=== PATIENT | female | born 1990 | race Caucasian/White ===

== ENCOUNTER → 2018-09-25 | Outpatient (CLI) | payer MEDICAID ==
[2018-09-25 16:06] LABS: BASO % 0.2 % (0.0-1.0); EOS # 0.1 10^3/uL (0.0-0.50); EOS % 0.7 % (0.0-3.0); HEMATOCRIT 34.9 % (36.0-47.0); HEMOGLOBIN 11.6 g/dl (12.0-15.5); LYMPH # 2.5 10^3/uL (1.5-6.5); LYMPH % 12.8 % (24.0-44.0); MEAN CORPUSCULAR HEMOGLOBIN 30.4 pg (27.0-33.0); MEAN CORPUSCULAR HGB CONC 33.2 g/dl (32.0-36.5); MEAN CORPUSCULAR VOLUME 91.4 fl (80.0-96.0); MONO # 0.7 10^3/uL (0.0-0.8); MONO % 3.6 % (0.0-5.0); NEUTROPHILS # 15.8 10^3/uL (1.8-7.7); PLATELET COUNT, AUTOMATED 315 10^3/uL (150-450); RED BLOOD COUNT 3.82 10^6/uL (4.00-5.40); WHITE BLOOD COUNT 19.2 10^3/uL (4.0-10.0)
[2018-09-25 17:19] LABS: HIV 1&2 SCREEN CENTAUR NEGATIVE (NEGATIVE); RUBELLA IgG QUALITATIVE IMMUNE (IMMUNE)
[2018-09-25 17:34] LABS: CHLAMYDIA DNA AMPLIFICATION NEGATIVE (NEGATIVE); GC DNA AMPLIFICATION NEGATIVE (NEGATIVE)
== END ==
LOC: M LAB 15:22
PROVIDERS: ATTEND Advanced Practice Midwife
DX: Z34.81 Encounter for supervision of other normal pregnancy, first trimester (principal); Z3A.08 8 weeks gestation of pregnancy

== ENCOUNTER 2018-10-11 20:57 | Inpatient (IN) | payer MEDICAID, OTHER ==
[~2018-10-11] VITALS: Ht 165.1 cm; Wt 60.5 kg
[2018-10-11] MEDS ORDERED: ZOFR4TAB16 PO (21:07)
[2018-10-11] MEDS ORDERED: KEFL500C17 PO (21:07)
[2018-10-11] MEDS ORDERED: LIDOCAINE 1% MDV 20ML VIAL As Ordered ONE (22:45)
[2018-10-11] MEDS ORDERED: LIDOCAINE 1% SDV INJ 30 ML VIAL SC SCH (22:45)
[2018-10-11] MEDS ORDERED: VANCOMYCIN HCL 1,000 MG, VIAL MATE ADAPTER 1 EACH in D5W 250 ML IV ONE (23:15)
[2018-10-11 23:26] LABS: BASO % 0.2 % (0.0-1.0); EOS # 0.2 10^3/uL (0.0-0.50); EOS % 0.9 % (0.0-3.0); HEMATOCRIT 33.5 % (36.0-47.0); HEMOGLOBIN 11.1 g/dl (12.0-15.5); LYMPH # 3.2 10^3/uL (1.5-6.5); LYMPH % 16.6 % (24.0-44.0); MEAN CORPUSCULAR HEMOGLOBIN 30.9 pg (27.0-33.0); MEAN CORPUSCULAR HGB CONC 33.1 g/dl (32.0-36.5); MEAN CORPUSCULAR VOLUME 93.3 fl (80.0-96.0); MONO % 5.3 % (0.0-5.0); NEUTROPHILS # 14.6 10^3/uL (1.8-7.7); NEUTROPHILS % 76.2 % (36.0-66.0); PLATELET COUNT, AUTOMATED 332 10^3/uL (150-450); RED BLOOD COUNT 3.59 10^6/uL (4.00-5.40); WHITE BLOOD COUNT 19.2 10^3/uL (4.0-10.0)
[2018-10-11] MEDS ORDERED: MORPHINE 4 MG/ML 1ML VIAL/SYRINGE (J2270) As Ordered ONE (23:33)
[2018-10-11] MEDS: MORPHINE 4 MG/ML 1ML VIAL/SYRINGE (J2270) IV PRN (23:35)
[2018-10-11] MEDS ORDERED: ONDA4TAB6 PO (23:49)
[2018-10-11] MEDS ORDERED: ACET-683 PO (23:49)
[2018-10-11 23:59] LABS: BLOOD UREA NITROGEN 12 MG/DL (7-18); C REACTIVE PROTEIN QUANTITATIV 4.14 MG/DL (0.00-0.30); CALCIUM LEVEL 8.2 MG/DL (8.5-10.1); CARBON DIOXIDE LEVEL 26 MEQ/L (21-32); CHLORIDE LEVEL 107 MEQ/L (98-107); CREATININE FOR GFR 0.54 MG/DL (0.55-1.30); GLOMERULAR FILTRATION RATE > 60.0 (>60); GLUCOSE, FASTING 80 MG/DL (70-100); POTASSIUM SERUM 3.7 MEQ/L (3.5-5.1); SODIUM LEVEL 140 MEQ/L (136-145)
[2018-10-12] MEDS: MORPHINE 4 MG/ML 1ML VIAL/SYRINGE (J2270) IV PRN (00:08)
[2018-10-12 01:50] VITALS: BP 103/55
[2018-10-12] MEDS ORDERED: PERCOCET 5MG/325MG TAB PO PRN (02:00)
[2018-10-12] MEDS: LR 1,000 ML IV SCH ×2 (02:29→10:00)
--- NOTE | 2018-10-12 05:25 | PHACANCOPD ---
PHARMACY VANCOMYCIN DOSING Pt Demographics Demographics Patient Age:28 , Weight:60.450 , Gender: female Adjusted Body Weight Date: 10/12/18, Adjusted Body Weight: [60.45] Kg-actual wt Vancomycin Vancomycin indication: RT.breast abcess Vancomycin Target Ranges: 10-20 mcg/ml Vancomycin Load Y/N: No Load Dose Date Time Vancomycin Load Dose: Date: Time: Vancomycin Dose Date: 10/12/18. Current Vancomycin Dose: [1 gram iv q8h] Intermittent Dosing?: No Labs Labs Laboratory Tests 10/11/18 23:12 Red Blood Count 3.59 L, Mean Corpuscular Volume 93.3, Mean Corpuscular Hemoglobin 30.9, Mean Corpuscular Hemoglobin Concent 33.1, Red Cell Distribution Width 12.6, Neutrophils (%) (Auto) 76.2 H, Lymphocytes (%) (Auto) 16.6 L, Monocytes (%) (Auto) 5.3 H, Eosinophils (%) (Auto) 0.9, Basophils (%) (Auto) 0.2, Neutrophils # (Auto) 14.6 H, Lymphocytes # (Auto) 3.2, Monocytes # (Auto) 1.0 H, Eosinophils # (Auto) 0.2, Basophils # (Auto) 0.0, Calcium Level 8.2 L Micro Microbiology 10/11/18 Blood Culture, Received Pending 10/11/18 Blood Culture, Received Pending 10/11/18 Wound Culture, Received Pending Creatinine Clearance Date:10/12/18. Creatinine Clearance: [>120].calculated Assessment and Plan Maintaining Current Dose?: Yes Reason for dose change: No Dose Change Pharmacist Note Pharmacist Note Date: 10/12/18. Pharmacist note:28YOF Admitted with Rt.breast abcess, SCR=0.54,crcl=>120, ALLERGY:AMOXICILLIN,ordered Vancomycin per Pharmacy consult. Vanco 1 gram administered in ED10/11@0835.Will begin 1 gram iv q8h regimen@0600.First trough is scheduled for 10/12@2100(prior to the 4th dose)-will continue to follow [facility] Oct 12, 2018 05:25
[2018-10-12] MEDS: ONDANSETRON 4MG/2ML VIAL (J2405) IV PRN ×2 (06:19→17:48)
[2018-10-12] MEDS: PERCOCET 5MG/325MG TAB PO PRN ×3 (06:20→19:01)
[2018-10-12] MEDS: VANCOMYCIN HCL 1,000 MG, VIAL MATE ADAPTER 1 EACH in D5W 250 ML IV SCH ×3 (06:21→22:45)
--- NOTE | 2018-10-12 07:17 | HPE ---
DATE OF ADMISSION: 10/12/2018 HISTORY: A 27-year-old (G) 3, para (P) 2 female 12-4/7 weeks gestation by last menstrual period (LMP) consistent with 8 week ultrasound, estimated date of confinement (EDC) of 04/21/2019, presents with 1 month of breast pain on the right side. The pain intensified for the past week and she developed redness and swelling of the breast. She denies fevers. She denies nausea or vomiting. An ultrasound of the breast on 10/11/2018 showed a 7 cm abscess on the right breast. OBSTETRICAL HISTORY: 1. 2007 - 42 week section, 6 pound 2 ounce, male . 2. 2013 - 38 week section, 6 pound 3 ounce, female infant. MEDICAL HISTORY: Noncontributory. SURGICAL HISTORY: section times two. ALLERGIES: No known drug allergies. SOCIAL HISTORY: Patient smokes less than half a pack of cigarettes per day. She denies alcohol or drug use. She lives in [place]. She is unmarried. FAMILY HISTORY: Noncontributory. PHYSICAL EXAMINATION: Blood pressure 124/74, pulse 84, temperature 99.4. She appears uncomfortable. Head and neck exam is normal. Lungs: Clear. Heart: Regular rate and rhythm. Breasts: Shows an indurated area at the 12 o'clock position of the right breast, this is approximately 8 to 9 cm in diameter, markedly erythema is present, the area if fluctuant. Abdomen: Nontender, uterus is 13 week size. heart tones: Present from earlier in the day. Extremities: Nontender. ASSESSMENT: 27-year-old, 3, para 2 female at total of 12-4/7 weeks gestation with a right breast abscess. Needle aspiration of abscess was performed in the emergency room (ER) by emergency room physician. RESULTS/IMPRESSION: 4 mL of pus. This was sent for culture. PLAN: Admit for IV vancomycin. Patient may require further drainage of the abscess if it reaccumulates.
[2018-10-12 08:00] VITALS: BP 122/56
[2018-10-12] MEDS: PRENATAL VITAMINS CHEWABLE TABLET PO SCH (08:26)
[2018-10-12] MEDS: DOCUSATE SODIUM 100 MG CAP PO SCH ×2 (08:26→20:48)
--- NOTE | 2018-10-12 08:49 | NUR ---
Progress note S: Pain slightly improved in right breast O: KG=352/56 P=86 T=97.9 NAD right breast: erythema 12 o'clock 7 cm diameter, indurated abd: NT, soft, NT ext: NT A/P 28 yo at 12 5/7 weeks gestation with right breast abscess drainage by syringe on admission last night Continue Vancomycin FH documented in office yesterday wound culture pending Juan Trujillo MD
[2018-10-12 15:59] VITALS: BP 110/60
[2018-10-12 20:00] VITALS: BP 102/57
[2018-10-12] MEDS: NICOTINE 21MG/24HR 1 EA TRANSDERMAL TD SCH (20:50)
[2018-10-13] VITALS: BP 114/63
[2018-10-13] MEDS ORDERED: VANCOMYCIN HCL 1,000 MG, VIAL MATE ADAPTER 1 EACH in D5W 250 ML IV ONE ×3
[2018-10-13] MEDS: ONDANSETRON 4MG/2ML VIAL (J2405) IV PRN ×3 (02:36→16:54)
[2018-10-13] MEDS: PERCOCET 5MG/325MG TAB PO PRN ×4 (02:37→22:19)
--- NOTE | 2018-10-13 04:43 | PHACANCOPD ---
PHARMACY VANCOMYCIN DOSING Pt Demographics Demographics Patient Age:28 , Weight:60.450 , Gender: female Adjusted Body Weight Date: 10/12/18, Adjusted Body Weight: [60.45] Kg-actual wt Vancomycin Vancomycin indication: RT.breast abcess Vancomycin Target Ranges: 10-20 mcg/ml Vancomycin Load Y/N: No Load Dose Date Time Vancomycin Load Dose: Date: Time: Vancomycin Dose Date: 10/12/18. Current Vancomycin Dose: [1 gram iv q8h] Intermittent Dosing?: No Labs Micro Microbiology 10/11/18 Blood Culture - Preliminary, Resulted No growth after 24 hours . All specim... 10/11/18 Blood Culture - Preliminary, Resulted No growth after 24 hours . All specim... 10/11/18 Wound Culture, Received Pending Creatinine Clearance Date:10/12/18. Creatinine Clearance: [>120].calculated Assessment and Plan Maintaining Current Dose?: Yes Reason for dose change: No Dose Change Pharmacist Note Pharmacist Note Date: 10/13/18. Pharmacist note:Vancomycn trough drawn 10/12@20:44 reported as 7.2 ([id number]).Will administer additional 1 gram dose for 12 midnight and continue with 1 gram IV Q8hour dosing.Next trough is scheduled for 10/13@1300- will continue to follow labs Date: 10/12/18. Pharmacist note:28YOF Admitted with Rt.breast abcess, SCR=0.54,crcl=>120, ALLERGY:AMOXICILLIN,ordered Vancomycin per Pharmacy consult. Vanco 1 gram administered in ED/@2335.Will begin 1 gram iv q8h reg imen@0600.First trough is scheduled for 10/12@2100(prior to the 4th dose)-will continue to follow [facility] Oct 13, 2018 04:43
[2018-10-13] MEDS: VANCOMYCIN HCL 1,000 MG, VIAL MATE ADAPTER 1 EACH in D5W 250 ML IV SCH ×3 (06:19→22:19)
[2018-10-13 08:00] VITALS: BP 100/52
[2018-10-13] MEDS: NICOTINE 21MG/24HR 1 EA TRANSDERMAL TD SCH (09:00)
[2018-10-13] MEDS: PRENATAL VITAMINS CHEWABLE TABLET PO SCH (10:19)
[2018-10-13] MEDS: DOCUSATE SODIUM 100 MG CAP PO SCH ×2 (10:19→22:19)
[2018-10-13 13:49] VITALS: BP 100/77
[2018-10-13 20:00] VITALS: BP 115/57
[2018-10-13] MEDS ORDERED: NICOTINE 7 MG/24 HR TRANSDERMAL TD ONE (21:45)
[2018-10-13] MEDS ORDERED: PROMETHAZINE INJ 25 MG/ML VIAL (J2550) IV PRN (21:45)
[2018-10-13] MEDS ORDERED: hydrOXYzine 50 MG TAB PO STA (22:19)
[2018-10-14 04:00] VITALS: BP 96/55
[2018-10-14] MEDS: VANCOMYCIN HCL 1,000 MG, VIAL MATE ADAPTER 1 EACH in D5W 250 ML IV SCH (06:25)
[2018-10-14] MEDS: PERCOCET 5MG/325MG TAB PO PRN ×4 (06:25→23:22)
[2018-10-14] MEDS: DOCUSATE SODIUM 100 MG CAP PO SCH ×2 (08:41→21:24)
--- NOTE | 2018-10-14 08:42 | REP ---
ULTRASOUND RIGHT BREAST: Real-time sonographic evaluation of the right breast was performed. Comparison made with prior exam 10/11/2018. At the region of 12 o'clock in the right breast there again appears to be a complex fluid collection which has slightly increased in size compared to the prior exam measuring 10.2 x 2.8 x 5.1 cm. IMPRESSION: There appears to be mild increased in size of complex fluid collection at 12 o'clock right breast. ACR 0 incomplete. BIRADS 0: BI-RADS/ACR category 0 mammogram, Incomplete: Need additional imaging evaluation and/or prior mammograms for comparison. Electronically Signed by Al Ricketts MD 10/14/2018 08:43 A
[2018-10-14 09:00] VITALS: BP 108/57
[2018-10-14] MEDS: ONDANSETRON 4MG/2ML VIAL (J2405) IV PRN (09:40)
[2018-10-14] MEDS ORDERED: LIDOCAINE 1% MDV 20ML VIAL As Ordered ONE (10:53)
[2018-10-14] MEDS ORDERED: LR 1,000 ML IV SCH (11:00)
[2018-10-14 13:00] VITALS: BP 120/72
[2018-10-14] MEDS: PRENATAL VITAMINS CHEWABLE TABLET PO SCH (14:24)
[2018-10-14 16:00] VITALS: BP 114/53
--- NOTE | 2018-10-14 16:42 | REP ---
ULTRASOUND-GUIDED RIGHT BREAST ABSCESS DRAIN The procedure was performed under the direct supervision of Dr. Ricketts. The risks and benefits of the procedure were explained to the patient and informed consent was obtained. The right breast abscess was localized using ultrasound guidance. The skin was prepped and draped in a sterile fashion. 1% lidocaine was used as a local anesthetic. Using ultrasound guidance an 8-[place] Skater APDL catheter was inserted using trocar technique. 10 ml of pink colored fluid was withdrawn and sent to lab for analysis. The catheter was affixed to the skin and a sterile dressing was applied. The catheter was connected to a gravity drainage bag. The patient tolerated the procedure well and there were no immediate complications. Reviewed by RAJ Burns 10/14/2018 04:33 P Electronically Signed by Wayne Muller MD 10/14/2018 04:33 P
[2018-10-14 20:00] VITALS: BP 103/50
[2018-10-14] MEDS ORDERED: NICOTINE 14 MG/24 HR TRANSDERMAL TD SCH (21:00)
[2018-10-14] MEDS ORDERED: hydrOXYzine 50 MG TAB PO ONE (21:30)
--- NOTE | 2018-10-14 23:11 | IPNPDOC ---
Text Note Date of Service The patient was seen on 10/14/18. NOTE Subjective: Patient reports she is feeling better. She reports minimal pain since her catheter was placed in her right breast for a breast abscess. She does report an increased want for a cigarette and desire that her Nicotine patch be increased. Also complaining of some anxiety and difficulty falling asleep. Objective: Catheter is draining a moderate amount of bloody discharge into the catheter. Right breast has catheter in place and sterile dressing with no drainage soaking through. Slight redness and firmness noted superior to catheter insertion. Assessment: IUP at 13 weeks gestation with right breast abscess Plan: Dr. Meneses consulted. He still has not seen patient. Nicotine patch increased to 14 mg daily. Hydroxyzine ordered for patient to help with her anxiety/PTSD. Will continue with IV Ancef every 8 hours. Consider discharge in morning if patient continues to do well and after consult with Dr. Meneses. VS,Fishbone, I+O VS, Fishbone, I+O Vital Signs Date Time Temp Pulse Resp B/P (MAP) Pulse Ox O2 Delivery O2 Flow Rate FiO2 10/14/18 19:50 14 10/14/18 16:00 97.6 87 114/53 (73) 100 10/12/18 01:29 Room Air I&O- Last 24 Hours up to 6 AM 10/14/18 06:00 Intake Total 2400 ml Balance 2400 ml DEPARTMENT OF MICROBIOLOGY ROUTINE CULTURE RESULTS WOUND CULTURE Final Organism 1 STAPHYLOCOCCUS AUREUS QUANTITY OF GROWTH MODERATE FULL REPORT IN LAB NOTES (eCW and [facility]). 1. STAPHYLOCOCCUS AUREUS RX Route Dose M.I.C. ----- ----- --------- ICR (INDUCIBLE CC RESISTANCE) + TETRACYCLINE S PO 250 mg qid <=1 PENICILLIN G R PO 250mg q6h fasting >=0.5 R IV 1 mu q6h TRIMETHOPRIM/SULFAMETHOXAZOLE S PO Bactrim DS Bid <=10 S IV 160mg TMP & 800mg SMXq6h ERYTHROMYCIN R PO 500mg q6h >=8 R IV 500mg q6h GENTAMICIN S IV 80mg q8h <=0.5 CLINDAMYCIN R PO 150mg q6h 0.25 R IV 600mg q6h OXACILLIN S IV 500mg q6h 0.5 VANCOMYCIN S IV 500mg q8h 1 LINEZOLID (ZYVOX) S PO 600MG Q12HR 2 S IV 600MG Q12HR DAPTOMYCIN S 0.25 MINOCYCLINE S <=0.5 An isolate with a (+) POSITIVE ICR test is considered CLINDAMYCIN RESISTANT; however, clindamycin may still be effective in some patients. ULTRASOUND-GUIDED RIGHT BREAST ABSCESS DRAIN The procedure was performed under the direct supervision of Dr. Ricketts. The risks and benefits of the procedure were explained to the patient and informed consent was obtained. The right breast abscess was localized using ultrasound guidance. The skin was prepped and draped in a sterile fashion. 1% lidocaine was used as a local anesthetic. Using ultrasound guidance an 8-[place] Skater APDL catheter was inserted using trocar technique. 10 ml of pink colored fluid was withdrawn and sent to lab for analysis. The catheter was affixed to the skin and a sterile dressing was applied. The catheter was connected to a gravity drainage bag. The patient tolerated the procedure well and there were no immediate complications. MELIZA MIN CNM Oct 14, 2018 23:11
[2018-10-15 04:30] VITALS: BP 104/55
[2018-10-15] MEDS: ONDANSETRON 4MG/2ML VIAL (J2405) IV PRN (06:00)
[2018-10-15] MEDS: PERCOCET 5MG/325MG TAB PO PRN ×2 (06:01→12:24)
[2018-10-15 08:00] VITALS: BP 104/55
[2018-10-15] MEDS: DOCUSATE SODIUM 100 MG CAP PO SCH (08:53)
[2018-10-15] MEDS: PRENATAL VITAMINS CHEWABLE TABLET PO SCH (08:53)
[2018-10-15 10:10] LABS: HEMATOCRIT 34.9 % (36.0-47.0); HEMOGLOBIN 11.5 g/dl (12.0-15.5); MEAN CORPUSCULAR VOLUME 91.1 fl (80.0-96.0); PLATELET COUNT, AUTOMATED 343 10^3/uL (150-450); RED BLOOD COUNT 3.83 10^6/uL (4.00-5.40); WHITE BLOOD COUNT 13.8 10^3/uL (4.0-10.0)
[2018-10-15] MEDS ORDERED: PERCOCET PO (12:36)
--- NOTE | 2018-10-15 15:45 | NUR ---
Discharge summary: Admission date: 10/12/18 Discharge date: 10/15/18 Admission diagnosis: 12+ weeks gestation Right breast abscess Discharge diagnosis: same Hospital course summary: 28yo admitted at 12+4 weeks with a diagnosis of a right breast abscess, measuring approximately 7cm by ultrasound. An attempt at needle aspiration was performed on 10/12/18 and a wound culture was sent. The wound culture resulted as S. aureus. IV Vancomycin was started. After the needle aspiration, the patient's pain minimally improved. A general surgeon and interventional radiology were consulted. The decision was made to proceed with an ultrasound-guided drain placement, which occurred on 10/14/18. After the drain was placed, the patient stated she was much more comfortable and the mass seemed to decrease significantly. Her WBC count improved from 19.2K to 13.8K. The patient was continued on antibiotics with Keflex 500mg BID x 10d. She is to follow up with Dr. Meneses (General Surgery) on , 10/17/18. Pain medications were also ordered: Percocet (limited Rx of 20 pills). Obstetrically, she remained stable. She met discharge criteria on 10/15/18. She will follow up in the OB office as scheduled. Anand Cr DO
--- NOTE | 2018-10-15 15:54 | NUR ---
Progress Note Pain much improved. Erythema decreasing. Breast abscess drain continues to drain bloody fluid. No obstetric complaints. Denies n/v/f/c/FAUSTIN/sob/cp Normotensive, normal HR, afebrile. Right breast ; drain in place, no surrounding erythema, mild tenderness Abd: soft, nt Ext: no c/c/e A/P: Right breast abscess; clinically improving. Meeting d/c criteria. -Drain to remain in place until 10/17/18 -Plan is for discharge to home. -Routine fever/infectious , pain, and bleeding precautions. Anand Cr DO
--- NOTE | 2018-10-18 21:33 | CR ---
DATE OF CONSULTATION: 10/15/2018 REASON FOR CONSULTATION: Right breast abscess. HISTORY OF PRESENT ILLNESS The patient is a 28-year-old female who is currently 12 weeks . She presented to the ER on the with redness and swelling of the right breast. She had no fevers, no nausea or vomiting. Ultrasound was obtained the day prior, which showed a 7 cm abscess. She was admitted to the OB service after having a needle aspiration done in the emergency room. However, with IV antibiotics she was still having significant swelling. Repeat ultrasound was done on the which still show a significant fluid collection and since she was not having any improvement with a IV antibiotics I was asked to evaluate for possible drainage. Prior to me seeing her they had already sent her down to radiology for an abscess drain placement and she currently has pigtail catheter placed into the cavity already. She says that the swelling has improved significantly after having the drain placed as well as her pain. No other complaints currently. She has never had any symptoms like this in the past. She did have some of the purulent drainage coming out of her nipple when she was admitted but that has since stopped as well. No bloody discharge. No prior masses in her breast prior to the abscess. No trauma to the area. No history of breast cancer in the family. PAST MEDICAL HISTORY: Negative. PAST SURGICAL HISTORY: times two. ALLERGIES: None. HOME MEDICATIONS: Please see med rec. SOCIAL HISTORY: Smokes half-pack a day. Denies drug or alcohol usage. FAMILY HISTORY: Noncontributory. REVIEW OF SYSTEMS: Pertinent positives and negatives stated in the HPI. PHYSICAL EXAMINATION General: Alert and oriented times three. In no acute distress. Vitals: Temperature 98.9, pulse 77, respirations 18, blood pressure 104/55, pulse ox 98% on room air. HEENT: Pupils equal round react to light and accommodation. Heart: S1, S2 regular rate and rhythm. Lungs: Clear to auscultation bilaterally. Abdomen: Soft, nontender, nondistended. Breast examination: On the right breast there is significant swelling from 12-o'clock lateral down to about the 7 o'clock position. There is significant fullness superior to the nipple. There is no fluctuance in the area, but it does feel very hard, like a large lump below the surface of the skin. The pigtail catheter was sticking out about the 9 o'clock position and does have some purulent drainage in the bag. No current nipple discharge. LABORATORY DATA White count 3.8, hemoglobin 0.5, platelets 343. IMAGING STUDIES Breast ultrasound from the shows a complex fluid collection at 12 o'clock, BI-RADS 0. ASSESSMENT/PLAN The patient is a 28-year-old female with a complicated right breast abscess status post IR drainage. There is still significant swelling. However, I cannot compare that prior to the drainage. At this point it is not appear fluctuant. It feels very hard and since the drain is already in place I will leave that there. She is stable enough to be discharged home on by mouth antibiotics. I will followup with her in the office on this week and see how the drainage is doing and how swelling is and go from there. Since there is no fluctuance I do not feel that placing a large incision is necessary at this time. Will leave the catheter place to let it do its job and if she needs anything further post hospitalization, then I will take care of it in the office.
== END 2018-10-15 14:33 | disposition home or self-care (01) | DRG 566 ==
LOC: M ED 20:57 → M ED INP 10-12 00:10 → M PED 10-12 01:41
PROVIDERS: ADMIT Specialist; ATTEND Specialist
PROC: 0H9T3ZZ Drainage of Right Breast, Percutaneous Approach (ICD-10-PCS; principal; 2018-10-14)
DX: O26.891 Other specified pregnancy related conditions, first trimester (principal); F17.210 Nicotine dependence, cigarettes, uncomplicated; N61.1 Abscess of the breast and nipple; O99.331 Smoking (tobacco) complicating pregnancy, first trimester; Z3A.12 12 weeks gestation of pregnancy

== ENCOUNTER → 2018-10-11 | Outpatient (CLI) | payer MEDICAID, OTHER ==
[~2018-10-11] MED LIST: ACET-683 PO; KEFL500C17 PO; ONDA4TAB6 PO; PERCOCET PO; ZOFR4TAB16 PO
--- NOTE | 2018-10-11 14:12 | REP ---
FOCUSED RIGHT BREAST SONOGRAPHY: HISTORY: Lump in the right breast. FINDINGS: The patient reports a hard palpable lump present for 1 month in the right breast. This was first noticed just after toddler fell against her chest in this region. Antibiotic therapy did not change the lesion according to patient. SONOGRAPHIC FINDINGS: Scanning in the area of the palpable lump from 11-o'clock position to 1-o'clock demonstrates a complex focal abnormality characterized by hypoechoic fluid components surrounded by thickened septated hyperemic morales suggesting an abscess. Overall dimensions are 7.3 x 2.6 x 4.7 cm. Enhanced through transmission is seen on several images. IMPRESSION: BIRADS 0: BI-RADS/ACR category 0 mammogram, Incomplete: Need additional imaging evaluation and/or prior mammograms for comparison. Findings most compatible with abscess 7.3 cm x 4.7 x 2.6 cm in diameter. The findings are somewhat nonspecific. Followup sonography is recommended. BIRADS category 0 incomplete. Consider aspiration or incision and drainage. Electronically Signed by Wayne Muller MD 10/11/2018 03:13 P
== END ==
LOC: M RAD 11:25
PROVIDERS: ATTEND Obstetrics & Gynecology
DX: Z34.81 Encounter for supervision of other normal pregnancy, first trimester (principal); N63.10 Unspecified lump in the right breast, unspecified quadrant; R92.2 Inconclusive mammogram; Z36.89 Encounter for other specified antenatal screening

== ENCOUNTER → 2019-01-02 | Outpatient (CLI) | payer OTHER ==
--- NOTE | 2019-01-02 20:32 | REP ---
Clinical: Anatomical evaluation. Comparison: None. Findings: Examination demonstrates a single live intrauterine in cephalic presentation. motion is identified by technologist. Placenta is noted posterior and grade one without evidence for placenta previa or abruption. Amniotic fluid volume is normal. Cervix measures 4.8 cm in length and appears closed. No evidence for nuchal cord. Gestational age by current measurements 25 weeks 4 days with CAMILA 04/13/2019 . FHR equals 128 beats per minute. BPD 6.0 cm 24 weeks 4 days HC 22.7 cm 24 weeks 5 days AC 21.1 cm 25 weeks 4 days FL 4.8 cm 25 weeks 6 days HL 4.5 cm 26 weeks 6 days HC/AC ratio 1.07 Estimated weight 826 grams ( 44th percentile). Anatomical assessment demonstrates normal structures including cranium, choroid plexus, cavum, cerebellum/posterior fossa, facial features, lungs, diaphragm, stomach, cord insertion/three-vessel cord, kidneys/bladder, spine, and extremities. Impression: 1. Single live intrauterine in cephalic presentation demonstrating appropriate estimated weight. 2. Limited evaluation of the heart and ventricular outflow tracts. Remainder of the anatomical assessment is complete and normal. Electronically Signed by Otilio Jose MD 01/02/2019 08:24 P
== END ==
LOC: M RAD 16:32
PROVIDERS: ATTEND Obstetrics & Gynecology
DX: Z34.82 Encounter for supervision of other normal pregnancy, second trimester (principal)

== ENCOUNTER → 2019-02-03 | Outpatient (CLI) | payer OTHER ==
[2019-02-03 12:01] LABS: BASO # 0.1 10^3/uL (0.0-0.2); BASO % 0.4 % (0.0-1.0); EOS # 0.1 10^3/uL (0.0-0.5); EOS % 0.7 % (0.0-3.0); HEMATOCRIT 33.7 % (36.0-47.0); HEMOGLOBIN 10.9 g/dl (12.0-15.5); LYMPH # 1.9 10^3/uL (1.5-5.0); LYMPH % 14.4 % (24.0-44.0); MEAN CORPUSCULAR HEMOGLOBIN 30.2 pg (27.0-33.0); MEAN CORPUSCULAR HGB CONC 32.3 g/dl (32.0-36.5); MEAN CORPUSCULAR VOLUME 93.4 fl (80.0-96.0); MONO # 0.7 10^3/uL (0.0-0.8); MONO % 5.5 % (0.0-5.0); NEUTROPHILS # 10.3 10^3/uL (1.5-8.5); NEUTROPHILS % 77.4 % (36.0-66.0); PLATELET COUNT, AUTOMATED 306 10^3/uL (150-450); RED BLOOD COUNT 3.61 10^6/uL (4.00-5.40); WHITE BLOOD COUNT 13.3 10^3/uL (4.0-10.0)
== END ==
LOC: M LAB 09:59
PROVIDERS: ATTEND Obstetrics & Gynecology
DX: Z34.82 Encounter for supervision of other normal pregnancy, second trimester (principal)

== ENCOUNTER → 2019-02-17 | Outpatient (CLI) | payer OTHER ==
--- NOTE | 2019-02-17 17:57 | REP ---
Clinical: Anatomical evaluation. Comparison: 01/02/2019 . Findings: Examination demonstrates a single live intrauterine in cephalic presentation. motion is identified by technologist. Placenta is noted posterior and grade I without evidence for placenta previa or abruption. Amniotic fluid volume is normal. Cervix measures 3.0 cm in length and appears closed. No evidence for nuchal cord. Gestational age by LMP 32 weeks 1 day with CAMILA 04/13/2019 . Gestational age by current measurements 32 weeks 0 days with CAMILA 04/14/2019 . FHR equals 165 beats per minute. Estimated weight 1828 grams ( 36 percentile). Amniotic fluid index: 19.0 cm Umbilical cord SD ratio: 2.52 Anatomical assessment demonstrates normal structures including cranium, cavum, cerebellum/posterior fossa, facial features, lungs, four-chamber heart/ventricular outflow tracts, diaphragm, stomach, three-vessel cord, kidneys/bladder, and spine. Impression: single live intrauterine in cephalic presentation demonstrating appropriate interval growth. In conjunction with prior examination anatomical assessment is complete and normal. Electronically Signed by Otilio Jose MD 02/17/2019 05:50 P
== END ==
LOC: M RAD 12:24
PROVIDERS: ATTEND Advanced Practice Midwife
DX: O99.332 Smoking (tobacco) complicating pregnancy, second trimester (principal); F17.200 Nicotine dependence, unspecified, uncomplicated; Z3A.32 32 weeks gestation of pregnancy

== ENCOUNTER → 2019-03-17 | Outpatient (REF) | payer OTHER | LOC: M LAB REF 16:41 | PROVIDERS: ATTEND Pediatrics | DX: O34.219 Maternal care for unspecified type scar from previous cesarean delivery (principal) ==

== ENCOUNTER 2019-04-04 18:56 | Emergency (ER) | payer OTHER ==
[~2019-04-04] VITALS: Ht 165.1 cm; Wt 70.5 kg
[~2019-04-04 18:56] MED LIST changes: +WELLTAB38 PO
[2019-04-04] MEDS ORDERED: NS 1,000 ML IV ONE (19:45)
[2019-04-04 20:41] LABS: BASO # 0.1 10^3/uL (0.0-0.2); BASO % 0.4 % (0.0-1.0); EOS # 0.1 10^3/uL (0.0-0.5); EOS % 0.6 % (0.0-3.0); HEMATOCRIT 33.8 % (36.0-47.0); HEMOGLOBIN 11.1 g/dl (12.0-15.5); LYMPH # 2.6 10^3/uL (1.5-5.0); LYMPH % 19.8 % (24.0-44.0); MEAN CORPUSCULAR HEMOGLOBIN 30.7 pg (27.0-33.0); MEAN CORPUSCULAR HGB CONC 32.8 g/dl (32.0-36.5); MEAN CORPUSCULAR VOLUME 93.4 fl (80.0-96.0); MONO # 0.9 10^3/uL (0.0-0.8); MONO % 6.6 % (0.0-5.0); NEUTROPHILS # 9.3 10^3/uL (1.5-8.5); NEUTROPHILS % 69.7 % (36.0-66.0); PLATELET COUNT, AUTOMATED 347 10^3/uL (150-450); RED BLOOD COUNT 3.62 10^6/uL (4.00-5.40); WHITE BLOOD COUNT 13.3 10^3/uL (4.0-10.0)
--- NOTE | 2019-04-04 20:50 | REPVR ---
PROCEDURE INFORMATION: Exam: US Duplex Left Lower Extremity Veins, Limited Exam date and time: 04/04/2019 7:55 PM Age: 28 years old Clinical history: Pain; Leg, lower; Left; Additional info: L ankle swelling and pain, into calf TECHNIQUE: Imaging protocol: Real-time Duplex ultrasound of the Left Lower Extremity with 2-D small scale, color Doppler flow and spectral waveform analysis with image documentation. Limited exam focused on the left lower extremity veins. COMPARISON: No relevant prior studies available. FINDINGS: Left deep veins: Unremarkable. The common femoral, femoral, proximal profunda femoral and popliteal veins are patent without thrombus. Normal Doppler waveforms. Normal compressibility and/or augmentation response. Left superficial veins: Unremarkable. Saphenofemoral junction is patent without thrombus. Soft tissues: Unremarkable. IMPRESSION: No DVT of the left lower extremity. Electronically signed by: Pb Partida On 04/04/2019 20:49:54 PM
[2019-04-04 22:09] VITALS: BP 119/62
== END 2019-04-04 22:18 | disposition home or self-care (01) ==
LOC: M ED 18:56
DX: O26.893 Other specified pregnancy related conditions, third trimester (principal); O99.613 Diseases of the digestive system complicating pregnancy, third trimester; O99.333 Smoking (tobacco) complicating pregnancy, third trimester; Z3A.37 37 weeks gestation of pregnancy; Z79.899 Other long term (current) drug therapy; Z88.0 Allergy status to penicillin

== ENCOUNTER 2019-04-14 06:13 | Inpatient (IN) | payer OTHER ==
[2019-04-14] VITALS (7 sets, daily range): BP systolic 103–126; BP diastolic 57–71
[~2019-04-14] VITALS: Ht 165.1 cm; Wt 70.3 kg
[~2019-04-14 06:13] MED LIST changes: +BICITRA 30ML SOLN UDC PO ONE; +LACTATED RINGER'S 1000 ML IV STA; +LR 1,000 ML IV SCH; +ceFAZolin SOD 2 GM in IV 1 EA IV ONE
[2019-04-14 06:47] LABS: HEMATOCRIT 35.3 % (36.0-47.0); HEMOGLOBIN 11.2 g/dl (12.0-15.5); MEAN CORPUSCULAR HGB CONC 31.7 g/dl (32.0-36.5); MEAN CORPUSCULAR VOLUME 94.6 fl (80.0-96.0); PLATELET COUNT, AUTOMATED 300 10^3/uL (150-450); RED BLOOD COUNT 3.73 10^6/uL (4.00-5.40); WHITE BLOOD COUNT 12.1 10^3/uL (4.0-10.0)
[2019-04-14] MEDS ORDERED: MAPA500T2 PO (07:06)
[2019-04-14] MEDS ORDERED: PRENTAB9 PO (07:06)
[2019-04-14] MEDS ORDERED: TUMS500C PO (07:06)
[2019-04-14] MEDS ORDERED: dexameTHASONE 4 MG/ML 1ML VIAL (J1100) As Ordered ONE (07:19)
[2019-04-14] MEDS ORDERED: OXYTOCIN INJ 10 UNITS/ML VIAL (J2590) As Ordered ONE (07:19)
[2019-04-14] MEDS ORDERED: KETOROLAC 60 MG/2 ML VIAL (J1885) As Ordered ONE (07:19)
[2019-04-14] MEDS ORDERED: ONDANSETRON 4MG/2ML VIAL (J2405) As Ordered ONE (07:19)
[2019-04-14] MEDS ORDERED: fentaNYL 100 MCG/2 ML INJECTION (J3010) As Ordered ONE (07:19)
[2019-04-14] MEDS ORDERED: MORPHINE PRES-FREE INJ 10 MG/10 ML VIAL (J2274) As Ordered ONE (07:19)
[2019-04-14] MEDS ORDERED: diphenhydrAMINE INJ 50MG/ML VIAL (J1200) IV PRN (07:51)
[2019-04-14] MEDS ORDERED: NALOXONE INJ 0.4 MG/1 ML VIAL (J2310) IV PRN ×2 (07:51)
[2019-04-14] MEDS ORDERED: NALBUPHINE HCL 10 MG/ML AMP (J2300) IV PRN ×2 (07:51→09:15)
[2019-04-14] MEDS ORDERED: ONDANSETRON 4MG/2ML VIAL (J2405) IV PRN ×2 (07:51→09:15)
[2019-04-14] MEDS ORDERED: METOCLOPRAMIDE INJ 10MG/2ML VIAL (J2765) IV PRN (07:51)
[2019-04-14] MEDS ORDERED: PHENYLephrine HCL 500 MCG/5 ML (100MCG/ML) SYRINGE (J2370) As Ordered ONE (07:53)
[2019-04-14] MEDS ORDERED: ePHEDrine SULFATE 25 MG/5 ML(5MG/ML) SYRINGE As Ordered ONE (08:05)
[2019-04-14] MEDS ORDERED: LR 1,000 ML IV SCH (08:50)
[2019-04-14] MEDS ORDERED: OXYTOCIN DRIP 30 UNITS in IV 1 EA IV ONE (09:00)
[2019-04-14] MEDS ORDERED: RHOGAM 300 MCG (1500 IU) INJ (J2790) IM SCH (09:00)
[2019-04-14] MEDS: PRENATAL VITAMINS CHEWABLE TABLET PO SCH (09:00)
[2019-04-14] MEDS ORDERED: PROMETHAZINE 25 MG TAB PO PRN (09:00)
[2019-04-14] MEDS: DOCUSATE SODIUM 100 MG CAP PO SCH ×2 (09:00→20:50)
[2019-04-14] MEDS ORDERED: ACETAMINOPHEN 500 MG TAB PO PRN (09:00)
[2019-04-14] MEDS ORDERED: ONDANSETRON 4 MG TAB (S0181) PO PRN (09:00)
[2019-04-14] MEDS ORDERED: MEASLES,MUMPS,RUBELLA VACCINE INJ (MMR-II) (90707) SC SCH (09:00)
[2019-04-14] MEDS ORDERED: OXYTOCIN 30 UNITS IN 0.9% NaCl 500ML IV BAG (J2590) As Ordered ONE (09:14)
[2019-04-14] MEDS ORDERED: fentaNYL 100 MCG/2 ML INJECTION (J3010) IV PRN (09:15)
[2019-04-14] MEDS ORDERED: KETOROLAC 30 MG/ML VIAL (J1885) IV PRN (09:15)
[2019-04-14] MEDS ORDERED: PERCOCET 5MG/325MG TAB As Ordered ONE (09:59)
[2019-04-14] MEDS: PERCOCET 5MG/325MG TAB PO PRN ×4 (10:00→23:01)
[2019-04-14] MEDS ORDERED: IBUP80TA PO (11:21)
[2019-04-14] MEDS ORDERED: DOCU100C16 PO (11:21)
[2019-04-14] MEDS ORDERED: PERCOCET PO (11:21)
[2019-04-14] MEDS: KETOROLAC 30 MG/ML VIAL (J1885) IV SCH ×2 (15:26→20:50)
[2019-04-15 02:00] VITALS: BP 103/58
[2019-04-15] MEDS: KETOROLAC 30 MG/ML VIAL (J1885) IV SCH (03:19)
[2019-04-15 05:30] VITALS: BP 107/56
--- NOTE | 2019-04-15 06:58 | IPNPDOC ---
Progress Note Date of Service: Apr 15, 2019 Day#: 1 Progress Note SUBJECT: Patient is a 28-year-old female who had a repeat section. She has been ambulating, voiding spontaneously without issue and tolerating regular diet. Patient is saline locked. OBJECTIVE: VITAL SIGNS: Within normal limits, afebrile. Alert and oriented times three. Breath sounds clear to auscultation. Heart rate: Regular rate and rhythm, no murmurs, rubs or gallops. Abdomen: Fundus firm at U. Minimal lochia. ASSESSMENT:Day 1 postoperative. PLAN: 1. Continue supportive nursing care and pain management. 2. Anticipate discharge to home tomorrow. 3. Patient may shower. VS, I&O, 24H, Fishbone Vital Signs/I&O Vital Signs Date Time Temp Pulse Resp B/P (MAP) Pulse Ox O2 Delivery O2 Flow Rate FiO2 04/15/19 05:30 98.6 70 18 107/56 (73) 99 Room Air I&O- Last 24 Hours up to 6 AM 04/15/19 06:00 Intake Total 3276 ml Output Total 1800 ml Balance 1476 ml MELIZA MIN CNM Apr 15, 2019 06:58
[2019-04-15] MEDS: DOCUSATE SODIUM 100 MG CAP PO SCH ×2 (07:22→21:03)
[2019-04-15] MEDS: PERCOCET 5MG/325MG TAB PO PRN ×3 (07:22→18:13)
[2019-04-15] MEDS: PRENATAL VITAMINS CHEWABLE TABLET PO SCH (07:22)
[2019-04-15 07:30] LABS: HEMATOCRIT 27.5 % (36.0-47.0); MEAN CORPUSCULAR HEMOGLOBIN 30.4 pg (27.0-33.0); MEAN CORPUSCULAR VOLUME 95.2 fl (80.0-96.0); PLATELET COUNT, AUTOMATED 226 10^3/uL (150-450); RED BLOOD COUNT 2.89 10^6/uL (4.00-5.40); WHITE BLOOD COUNT 15.4 10^3/uL (4.0-10.0)
[2019-04-15 07:36] LABS: HEMOGLOBIN 8.8 g/dl (12.0-15.5)
[2019-04-15 10:01] VITALS: BP 110/53
[2019-04-15] MEDS: IBUPROFEN 800 MG TAB PO SCH ×2 (10:39→18:13)
[2019-04-15 14:00] VITALS: BP 105/51
[2019-04-15 18:00] VITALS: BP 108/62
[2019-04-15 22:00] VITALS: BP 106/51
[2019-04-16] MEDS: PERCOCET 5MG/325MG TAB PO PRN ×2 (01:25→07:36)
[2019-04-16 02:00] VITALS: BP 113/54
[2019-04-16] MEDS: IBUPROFEN 800 MG TAB PO SCH ×2 (03:23→10:47)
[2019-04-16 06:00] VITALS: BP 122/74
[2019-04-16] MEDS: PRENATAL VITAMINS CHEWABLE TABLET PO SCH (07:35)
[2019-04-16] MEDS: DOCUSATE SODIUM 100 MG CAP PO SCH (07:36)
--- NOTE | 2019-04-17 13:50 | DSES ---
DATE OF ADMISSION: 04/14/2019 DATE OF DISCHARGE: 04/16/2019 HISTORY: This is a 28-year-old (G) 3, para (P) 2 female at 39 weeks gestation, presents for a scheduled repeat section. Her course was unremarkable. She has a history of two prior sections. HOSPITAL COURSE: The patient was admitted on 04/14/2019. She underwent repeat section of a 7-pound, 5-ounce infant. There were no complications. Her postoperative course was unremarkable. She had adequate return of bladder and bowel function. Her postoperative hemoglobin was 8.8 grams/dL. She was deemed stable for discharge on postoperative day number two. ADMISSION DIAGNOSIS: at 39 weeks, prior (C) section times two. DISCHARGE DIAGNOSIS: Delivered. PROCEDURE: Repeat section. DISPOSITION: The patient will followup with Dr. Cr in two weeks. Instructions were reviewed.
== END 2019-04-16 12:35 | disposition home or self-care (01) | DRG 540 ==
LOC: M LDI 06:13 → M OBS 10:22
PROVIDERS: ADMIT Obstetrics & Gynecology; ATTEND Obstetrics & Gynecology
PROC: 10D00Z1 Extraction of Products of Conception, Low, Open Approach (ICD-10-PCS; principal; 2019-04-14 07:30)
DX: O34.211 Maternal care for low transverse scar from previous cesarean delivery (principal); Z3A.39 39 weeks gestation of pregnancy; Z37.0 Single live birth

== ENCOUNTER 2020-02-02 15:42 | Emergency (ER) | payer OTHER ==
[~2020-02-02] VITALS: Ht 165.1 cm; Wt 64.6 kg
[~2020-02-02 15:42] MED LIST changes: -BICITRA 30ML SOLN UDC PO ONE; +DOCU100C16 PO; +IBUP80TA PO; -LACTATED RINGER'S 1000 ML IV STA; -LR 1,000 ML IV SCH; +MAPA500T2 PO; +PRENTAB9 PO; +TUMS500C PO; -ceFAZolin SOD 2 GM in IV 1 EA IV ONE
--- NOTE | 2020-02-02 17:35 | REPVR ---
PROCEDURE INFORMATION: Exam: US First Trimester, Transabdominal Exam date and time: 02/02/2020 4:54 PM Age: 29 years old Clinical indication: Lmp or gestational age (in weeks): 6; Antepartum complications; Bleeding; ; Additional info: Vaginal bleeding TECHNIQUE: Imaging protocol: Real-time transabdominal obstetrical ultrasound of the maternal pelvis and a first trimester , less than 14 weeks 0 days, with image documentation. COMPARISON: US OBS FOLL UP OR REPEAT EACH GES 02/17/2019 12:34 PM FINDINGS: Gestation: There is no evidence of a intrauterine gestational sac. It is possible that it is too early to identify the gestational sac which can be seen at approximately 5 weeks gestation. This should be correlated with the HCG level. Microscopic ectopic could not be excluded. The thickening of the endometrium could also be decidual reaction and associated with spontaneous since the patient is passing blood. Uterus: The uterus measures 11 cm in length by 4.4 cm in AP dimension by 6.3 cm in transverse dimension. There is marked focal thickening of the endometrium measuring 2.6 cm in AP dimension. Right adnexa: The right ovary measures 2.7 cm in length by 1.7 cm in AP dimension. There is vascular flow of the right ovary. No adnexal mass could be identified during the scan. Left adnexa: The left ovary cannot be visualized on transabdominal scanning. Intraperitoneal space: There is no evidence of free fluid in the pelvis. Urinary bladder: Normal appearing urinary bladder. Other findings: Patient refused transvaginal scanning. IMPRESSION: 1. No intrauterine gestational sac is identified and it may be too early to identify the gestational sac, correlate with hCG levels. Please see the above comments. 2. Thickening of the endometrium measuring 2.6 cm may be decidual reaction. Spontaneous a consideration since there is vaginal bleeding. Electronically signed by: Kostas Wallace On 02/02/2020 17:35:22 PM
[2020-02-02 18:06] LABS: APPEARANCE, URINE HAZY (CLEAR); BACTERIA, URINE AUTO 1+ (NEGATIVE); BILIRUBIN, URINE AUTO NEGATIVE (NEGATIVE); BLOOD, URINE BLOOD 3+ (NEGATIVE); COLOR, URINE YELLOW (YELLOW); GLUCOSE, URINE (UA) AUTO NEGATIVE (NEGATIVE); KETONE, URINE AUTO TRACE mg/dL (NEGATIVE); LEUKOCYTE ESTERASE, URINE AUTO NEGATIVE (NEGATIVE); MUCUS, URINE SMALL (NEGATIVE); NITRITE, URINE AUTO NEGATIVE (NEGATIVE); PROTEIN, URINE AUTO NEGATIVE (NEGATIVE); RBC, URINE AUTO 1 /HPF (0-3); SQUAMOUS EPITHELIAL CELL UR AU 7 /HPF (0-6); UROBILINOGEN, URINE AUTO 0.2 mg/dL (0.0-2.0); WBC, URINE AUTO 2 /HPF (0-3)
[2020-02-02 20:03] LABS: BASO # 0.1 10^3/uL (0.0-0.2); BASO % 0.6 % (0.0-1.0); EOS # 0.4 10^3/uL (0.0-0.5); EOS % 3.7 % (0.0-3.0); HEMATOCRIT 38.7 % (36.0-47.0); HEMOGLOBIN 12.6 g/dl (12.0-15.5); LYMPH # 3.4 10^3/uL (1.5-5.0); LYMPH % 31.4 % (24.0-44.0); MEAN CORPUSCULAR HGB CONC 32.6 g/dl (32.0-36.5); MEAN CORPUSCULAR VOLUME 95.3 fl (80.0-96.0); MONO # 0.7 10^3/uL (0.0-0.8); MONO % 6.4 % (0.0-5.0); NEUTROPHILS # 6.2 10^3/uL (1.5-8.5); NEUTROPHILS % 57.5 % (36.0-66.0); PLATELET COUNT, AUTOMATED 314 10^3/uL (150-450); RED BLOOD COUNT 4.06 10^6/uL (4.00-5.40); WHITE BLOOD COUNT 10.8 10^3/uL (4.0-10.0)
[2020-02-02 20:06] VITALS: BP 115/69
== END 2020-02-02 20:12 | disposition home or self-care (01) ==
LOC: M ED 15:42
DX: O20.0 Threatened abortion (principal); O26.891 Other specified pregnancy related conditions, first trimester; Z32.01 Encounter for pregnancy test, result positive; O99.331 Smoking (tobacco) complicating pregnancy, first trimester; Z3A.01 Less than 8 weeks gestation of pregnancy; Z79.899 Other long term (current) drug therapy; Z88.0 Allergy status to penicillin

== ENCOUNTER 2020-08-18 21:34 | Outpatient (CLI) | payer OTHER ==
[~2020-08-18] VITALS: Ht 162.6 cm; Wt 66.9 kg
[2020-08-18 22:35] VITALS: BP 106/62
== END 2020-08-18 22:35 | disposition home or self-care (01) ==
LOC: M LDO 21:34
PROVIDERS: ATTEND Advanced Practice Midwife
DX: O34.219 Maternal care for unspecified type scar from previous cesarean delivery (principal); O26.892 Other specified pregnancy related conditions, second trimester; R25.2 Cramp and spasm; Z3A.23 23 weeks gestation of pregnancy

== ENCOUNTER → 2020-09-02 | Outpatient (CLI) | payer OTHER ==
--- NOTE | 2020-09-03 09:33 | REP ---
INDICATION: DATING/VIABILITY COMPARISON: None TECHNIQUE: Transabdominal obstetrical ultrasound with color Doppler evaluation. FINDINGS: Examination demonstrates a single live intrauterine in cephalic presentation. motion is identified by technologist. Placenta is noted posterior and grade 0 without evidence for placenta previa or abruption. Amniotic fluid volume is normal. Cervix measures 3.5 cm in length and appears closed.. Gestational age by current measurements 25 weeks 5 days with CAMILA 12/11/2020. FHR equals 147 beats per minute. BPD: 6.3 cm at 25 weeks 4 days HC: 22.7 cm at 24 weeks 5 days AC: 20.4 cm at 25 weeks 0 days FL: 4.9 cm at 26 weeks 3 days HL: 4.5 cm at 26 weeks 5 days HC/AC: Estimated weight grams (percentile). Anatomical assessment demonstrates normal structures including cranium, choroid plexus, cavum, cerebellum/posterior fossa, facial features, lungs, four-chamber heart/ventricular outflow tracts, diaphragm, stomach, cord insertion/three-vessel cord, kidneys/bladder, and extremities. IMPRESSION: Single live intrauterine in cephalic presentation demonstrating appropriate estimated weight. Anatomical assessment is relatively normal. However, limited evaluation of the cervical spine due to positioning and renal pelviectasis which is within normal range may warrant re-evaluation. <Electronically signed by Otilio Jose > 09/03/20 [id number]
== END ==
LOC: M RAD 13:20
PROVIDERS: ATTEND Obstetrics & Gynecology
DX: O34.211 Maternal care for low transverse scar from previous cesarean delivery (principal); Z3A.25 25 weeks gestation of pregnancy

== ENCOUNTER → 2020-09-23 | Outpatient (REF) | payer OTHER ==
[2020-09-23 13:46] LABS: HEMATOCRIT 36.6 % (36.0-47.0); HEMOGLOBIN 11.9 g/dl (12.0-15.5); MEAN CORPUSCULAR HEMOGLOBIN 30.7 pg (27.0-33.0); MEAN CORPUSCULAR HGB CONC 32.5 g/dl (32.0-36.5); MEAN CORPUSCULAR VOLUME 94.6 fl (80.0-96.0); PLATELET COUNT, AUTOMATED 345 10^3/uL (150-450); RED BLOOD COUNT 3.87 10^6/uL (4.00-5.40); WHITE BLOOD COUNT 11.1 10^3/uL (4.0-10.0)
[2020-09-23 14:54] LABS: HIV 1&2 SCREEN CENTAUR NEGATIVE (NEGATIVE)
== END ==
LOC: M PLALAB 10:11
PROVIDERS: ATTEND Advanced Practice Midwife
DX: O34.211 Maternal care for low transverse scar from previous cesarean delivery (principal); Z3A.00 Weeks of gestation of pregnancy not specified

== ENCOUNTER → 2020-10-28 | Outpatient (CLI) | payer OTHER ==
--- NOTE | 2020-10-28 16:15 | REP ---
INDICATION: F/U ANATOMY. Maternal care due to low transverse uterine scar from previous delivery. Follow-up spine from anatomy study. CAMILA 11 December 2020. COMPARISON: Comparison study September 02, 2020.. TECHNIQUE: Transabdominal obstetric sonography. FINDINGS: Scanning through the gravid uterus demonstrates a viable single intrauterine gestation in cephalic lie. motion is observed and heart rate is recorded at 165 beats per minute. A posterior placenta is seen, grade 1, without evidence of placenta previa. Closed cervical length is measured at 3.4 cm transabdominally. No extrauterine abnormality is observed. Amniotic fluid is subjectively normal. spine and bilateral kidneys are visualized today and are felt to be unremarkable.. Biometry chart: BPD 8.3 cm, 33 weeks 2 days Head circumference 30.0 cm, 33 weeks 2 days Abdominal circumference 29.3 cm, 33 weeks 2 days Femur length 6.5 cm, 33 weeks 4 days Humeral length 5.9 cm, 34 weeks 2 days HC AC ratio normal 1.02 Cephalic index normal 0.78 Estimated weight 2186 g, 4 lb 13 oz, 34th percentile for 35 weeks 5 days CHELI normal 10.4 cm IMPRESSION: Viable single intrauterine gestation at 33 weeks 4 days by today's composite sonographic criteria. CAMILA by today's sonography December 12, 2020. No complication identified. Expected gestational age estimate by prior sonography 33 weeks 5 days. CAMILA by prior sonography 11 December 2020. In conjunction with the previous study, anatomic survey is felt to be complete. <Electronically signed by Hector Muller > 10/28/20 [id number]
== END ==
LOC: M WHC 15:34
PROVIDERS: ATTEND Advanced Practice Midwife
DX: Z36.9 Encounter for antenatal screening, unspecified (principal); Z3A.33 33 weeks gestation of pregnancy

== ENCOUNTER → 2020-11-15 | Outpatient (REF) | payer OTHER | LOC: M SFHCWAGY 16:53 | PROVIDERS: ATTEND Specialist | DX: Z34.83 Encounter for supervision of other normal pregnancy, third trimester (principal); Z36.89 Encounter for other specified antenatal screening ==

== ENCOUNTER 2020-11-30 19:10 | Inpatient (IN) | payer OTHER ==
[~2020-11-30] VITALS: Ht 165.1 cm; Wt 71.8 kg
[2020-11-30] MEDS: LR 1,000 ML IV SCH (02:45)
[~2020-11-30 19:10] MED LIST changes: +KETOROLAC 30 MG/ML 1ML VIAL IV SCH
[2020-11-30 19:15] VITALS: BP 110/69
[2020-11-30 20:00] VITALS: BP 119/73
[2020-11-30] MEDS ORDERED: LACTATED RINGER'S 1000 ML IV STA (20:02)
[2020-11-30] MEDS ORDERED: AZITHROMYCIN INJ 500 MG, VIAL MATE ADAPTER 1 EACH in NS 250 ML IV ONE (20:05)
[2020-11-30] MEDS ORDERED: ceFAZolin SOD 2 GM in IV 1 EA IV ONE (20:05)
[2020-11-30] MEDS ORDERED: CARBOPROST TROMETHAMINE 250 MCG/ML AMP IM PRN (20:05)
[2020-11-30] MEDS ORDERED: LR 1,000 ML IV SCH ×2 (20:05→22:55)
[2020-11-30] MEDS ORDERED: TRANEXAMIC ACID INJection 1,000 MG in NS 100 ML IV PRN (20:05)
[2020-11-30] MEDS ORDERED: BICITRA 30ML SOLN UDC PO ONE (20:05)
[2020-11-30] MEDS ORDERED: METHYLERGONOVINE MALEATE 0.2 MG/ML VIAL (J2210) IM PRN (20:05)
--- NOTE | 2020-11-30 20:06 | HPEPDOC ---
Obstetrical History & Physical General Date of Admission Nov 30, 2020 at 19:49 History of Present Illness 30-year-old at 38+3 weeks gestation. Presents with onset of heavy VB and LOF. Intermittent painful ctx/cramping. Reports regular movement. ROS: no FAUSTIN, cp, sob, fever/chills/nausea/vomiting. course: LTCSx3/satisfied parity. 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 Tolerates cephalosporin FINANCIAL SERVICES EDUCATION CONSULTANT: No STI or dysplasia OB: Term LTCS x 3 Sochx: No tobacco, alcohol or drug use FamHx: HTN labs: Blood type O+, antibody screen negative, HepBsAg neg, HIV neg, rubella immune, Hep C antibody negative, RPR nonreactive, CT/GC neg, urine culture negative, 1 hour glucose challenge test 102, GBS positive imaging: no anomalies or placental abnormalities Past Medical History Allergies Coded Allergies: amoxicillin (Verified Allergy, Intermediate, hives, 11/25/20) Medications Scheduled No.137/Iron/Folic Acd ( Vitamin Tablet) 1 Each Tablet, 1 TAB PO DAILY Miscellaneous Medications Acetaminophen (Mapap) 500 Mg Tablet, 1,000 MG PO Physical Examination Physical Examination GENERAL: Alert and oriented times three. ABDOMEN: Gravid and non-tender to touch. FETUS: Is vertex (VTX) by sterile vaginal examination (SVE), fetus is vertex (VTX) by Rico. HEART RATE: Regular rate and rhythm. LUNGS: Clear to auscultation (CTA). EXTREMITIES: No edema. No clonus. PELVIC: heavy VB, +pooling/Nitrazine EFM: Cat I [place]: ctxs irregular. Laboratory Data 24H LABS Laboratory Tests 2 11/30/20 19:54: Serology Scanned Report Hepatitis B Testing Assessment/Plan Assessment 30-year-old -0-1-3 at 38+3 weeks gestation. Spontaneous rupture of membranes concern for placental abruption given the level of bleeding she presents with. status is currently reassuring. Patient expressed satisfied parity requesting permanent tubal sterilization at the time of repeat . Plan Admit and orient. Security Attendant and consent. Preparation for the OR being made upon her admission Surgical plan: Repeat low-transverse section and bilateral tubal ligation REJI BELL DO Nov 30, 2020 20:06
[2020-11-30 20:42] LABS: HEMATOCRIT 32.7 % (36.0-47.0); HEMOGLOBIN 10.7 g/dl (12.0-15.5); MEAN CORPUSCULAR HEMOGLOBIN 29.6 pg (27.0-33.0); MEAN CORPUSCULAR HGB CONC 32.7 g/dl (32.0-36.5); MEAN CORPUSCULAR VOLUME 90.6 fl (80.0-96.0); PLATELET COUNT, AUTOMATED 273 10^3/uL (150-450); RED BLOOD COUNT 3.61 10^6/uL (4.00-5.40); WHITE BLOOD COUNT 10.6 10^3/uL (4.0-10.0)
[2020-11-30] MEDS ORDERED: OXYTOCIN 30 UNITS IN 0.9% NaCl 500ML IV BAG (J2590) As Ordered ONE ×2 (20:52→22:46)
[2020-11-30] MEDS ORDERED: MORPHINE PRES-FREE INJ 10 MG/10 ML VIAL (J2274) As Ordered ONE (20:52)
[2020-11-30] MEDS ORDERED: ONDANSETRON 4MG/2ML VIAL As Ordered ONE (20:52)
[2020-11-30] MEDS: DOCUSATE SODIUM 100MG CAPSULE PO SCH (21:00)
[2020-11-30] MEDS ORDERED: diphenhydrAMINE 50MG/ML VIAL (J1200) IV PRN (21:03)
[2020-11-30] MEDS ORDERED: METOCLOPRAMIDE INJ 10MG/2ML VIAL (J2765 PER 1) IV PRN (21:03)
[2020-11-30] MEDS ORDERED: NALBUPHINE HCL 10 MG/ML AMP (J2300) IV PRN ×2 (21:03→22:55)
[2020-11-30] MEDS ORDERED: ONDANSETRON 4MG/2ML VIAL IV PRN ×3 (21:03→22:55)
[2020-11-30] MEDS ORDERED: NALOXONE INJ 0.4MG/1ML VIAL (J2310 PER 1MG) IV PRN ×2 (21:03)
[2020-11-30] MEDS ORDERED: ePHEDrine SULFATE 25 MG/5 ML(5MG/ML) SYRINGE As Ordered ONE (21:09)
[2020-11-30] MEDS ORDERED: KETOROLAC 60MG 2ML VIAL As Ordered ONE (21:52)
[2020-11-30] MEDS ORDERED: fentaNYL 100 MCG/2 ML INJECTION (J3010) As Ordered ONE (21:57)
[2020-11-30] MEDS ORDERED: SIMETHICONE 80MG CHEW TAB PO PRN (22:40)
[2020-11-30] MEDS ORDERED: RHOGAM 300 MCG (1500 IU) INJ (J2790) IM SCH (22:40)
[2020-11-30] MEDS ORDERED: ACETAMINOPHEN 500 MG TAB PO PRN (22:40)
[2020-11-30] MEDS ORDERED: MEASLES,MUMPS,RUBELLA VACCINE INJ (MMR-II) (90707) SC SCH (22:40)
[2020-11-30] MEDS ORDERED: PERCOCET 5MG/325MG TAB PO PRN (22:40)
[2020-11-30] MEDS ORDERED: OXYTOCIN DRIP 30 UNITS in IV 1 EA IV SCH (22:40)
--- NOTE | 2020-11-30 22:47 | ROOPDOC ---
[facility] Report Of Operation Report of Operation DATE OF PROCEDURE: 11/30/2020 PREPROCEDURE DIAGNOSES: 38+3 weeks gestation, concern for placental abruption, spontaneous rupture membranes, history of low transverse section x3, satisfied parity POSTPROCEDURE DIAGNOSES: Same; intraoperative findings consistent with placental abruption PROCEDURE: Repeat low transverse section with [place] bilateral tubal ligation. SURGEON: Papito Cr DO FACOG EQUAL OPPORTUNITY DIRECTOR: None ANESTHESIA: Spinal with Duramorph ESTIMATED BLOOD LOSS: 600 mL. IV FLUIDS: 700 mL LR URINE OUTPUT: 200 mL COMPLICATIONS: None. FINDINGS: Normal uterus and bilateral fallopian tubes/ovaries. PREOPERATIVE ANTIBIOTICS: Ancef 2g IV x 1, azithromycin 500mg IV. DATA: Apgars 9 and 9. Birthweight 2790 g, 6 pounds 2 ounces. SPECIMENS: right and left fallopian tubal segments. PRIMARY INDICATION FOR : History of 3 prior low transverse sections and spontaneous rupture of membranes with concern for placental abruption DESCRIPTION OF PROCEDURE: The patient was counseled on the risks, benefits, indications and alternatives of the procedure. Informed consent was obtained. She was taken to the operating room with IV running and placed on the operating table in the dorsal supine position with a leftward tilt. Regional anesthesia was found to be adequate. Sequential compression devices were placed on the lower extremities. A Martinez catheter was placed under sterile conditions. She was prepared and draped in normal sterile fashion. A time out was performed per protocol. Regional anesthesia was again found to be adequate. A Pfannenstiel skin incision was made with the 10 blade. The 10 blade was used to dissect down to the level of the rectus sheath fascia. The rectus sheath pressure was incised midline and this was extended bilaterally with Frey scissors , and manual stretch. The rectus muscle bellies were dissected off the rectus sheath fascia superiorly and inferiorly using both sharp and blunt dissection. The midline was identified. The peritoneum was identified and the cavity entered. The peritoneal opening was extended with manual stretch. The Mobius retractor was placed. The vesicouterine peritoneum was dissected with Metzenbaum scissors to create the bladder flap. A low transverse uterine incision was made with the 10 blade. This was extended with manual stretch. The amniotic sac was punctured, and clear fluid was noted. The baby delivered through the hysterotomy without difficulty; cephalic presentation. The cord was doubly clamped and cut, and the baby was handed off to awaiting care. data shown above. The placenta was removed manually. The intrauterine cavity was cleared of all clot and debris. The hysterotomy was closed with 0 Vicryl in running locked fashion. This was reinforced with a second imbricating layer using 0 Vicryl in running fashion. Excellent hemostasis of the hysterotomy was noted. The right and left fallopian tubes were followed out to the fimbriated end. A ligation was performed on each fallopian tube using the following technique (Jazzmine): The ampullary portion of each was grasped with a Ton and elevated. A peritoneal window was created with Bovie along the mesosalpinx. Plain gut suture was used to tie two locations of the fallopian tube at the ends of the created window. The approximate 2-3cm intervening segment of fallopian tube was excised with Metzenbaum scissors. Bovie cautery was used to obliterate the lumen of the fallopian tube on each cut end, and to ensure hemostasis. Excellent hemostasis was noted. The pelvis was irrigated and the fluid suctioned. The Mobius retractor was removed. The peritoneum was closed with 3-0 Vicryl running fashion. The rectus muscle bellies were reapproximated with interrupted stitches using 3-0 Vicryl. The rectus muscles bellies were hemostatic. The rectus sheath fascia was closed with 0 Vicryl running fashion. The subcutaneous layer was irrigated and the fluid suctioned. Small bleeding vessels were cauterized with Bovie. Excellent hemostasis was noted. The subcutaneous layer was reapproximated with 3-0 Vicryl running fashion. Skin was closed with 3-0 Monocryl in subcuticular fashion. An Optifoam bandage was placed over the closed incision. Sponge, needle and instrument counts were correct per protocol throughout the procedure. The patient tolerated the entire procedure very well. She was transferred to the PACU in stable condition. DO JAKE Gates JONATHAN R. DO Nov 30, 2020 22:47
[2020-11-30] MEDS ORDERED: DOK1CAP4 PO (22:48)
[2020-11-30] MEDS ORDERED: PERCOCET PO (22:48)
[2020-11-30] MEDS ORDERED: IBUP80TA PO (22:48)
[2020-11-30] MEDS ORDERED: fentaNYL 100 MCG/2 ML INJECTION (J3010) IV PRN (22:55)
[2020-12-01] VITALS (11 sets, daily range): BP systolic 97–144; BP diastolic 53–85
[2020-12-01] MEDS: PERCOCET 5MG/325MG TAB PO PRN ×4 (00:24→21:56)
[2020-12-01] MEDS: KETOROLAC 30 MG/ML 1ML VIAL IV SCH ×3 (03:42→16:14)
[2020-12-01 07:36] LABS: HEMATOCRIT 29.8 % (36.0-47.0); HEMOGLOBIN 9.8 g/dl (12.0-15.5); MEAN CORPUSCULAR HEMOGLOBIN 29.7 pg (27.0-33.0); MEAN CORPUSCULAR HGB CONC 32.9 g/dl (32.0-36.5); MEAN CORPUSCULAR VOLUME 90.3 fl (80.0-96.0); PLATELET COUNT, AUTOMATED 240 10^3/uL (150-450); WHITE BLOOD COUNT 18.4 10^3/uL (4.0-10.0)
[2020-12-01] MEDS: PRENATAL VITAMINS CHEWABLE TABLET PO SCH (08:17)
[2020-12-01] MEDS: DOCUSATE SODIUM 100MG CAPSULE PO SCH ×2 (08:17→21:55)
--- NOTE | 2020-12-01 08:34 | IPNPDOC ---
Progress Note Date of Service: Dec 01, 2020 Day#: 1 Progress Note SUBJECT: Status post RLTCS/BTL She has been ambulating, Martinez remains in place, and tolerating regular diet. Lochia decreasing/minimal. Pain is well- controlled. Incision bandage is clean/unsaturated. Denies headache, visual changes, right upper quadrant pain, shortness of breath or chest pain. OBJECTIVE: VITAL SIGNS: Within normal limits, afebrile. Urine output within normal limits Alert and oriented times three. Abdomen: Fundus firm at U-2. Soft, NTTP. Incision bandage not soaked through ASSESSMENT: Status post uncomplicated RLTCS/BTL. Vitals within normal limits, afebrile, hemodynamically stable with no evidence of infection. PLAN: Routine /postoperative advancement Postoperative instructions/precautions reviewed. Routine PP visit at 2 and 6 weeks in clinic. VS, I&O, 24H, Fishbone Vital Signs/I&O Vital Signs Date Time Temp Pulse Resp B/P (MAP) Pulse Ox O2 Delivery O2 Flow Rate FiO2 12/01/20 08:19 18 12/01/20 06:00 98.1 57 103/57 (72) 97 Room Air I&O- Last 24 Hours up to 6 AM 12/01/20 06:00 Intake Total 700 ml Output Total 1450 ml Balance -750 ml Laboratory Data 24H LABS Laboratory Tests 2 11/30/20 19:54: Serology Scanned Report Hepatitis B Testing 11/30/20 20:19: Nucleated Red Blood Cells % (auto) 0.0, Syphilis Serology NONREACTIVE 12/01/20 07:14: Nucleated Red Blood Cells % (auto) 0.0 CBC/BMP Laboratory Tests 11/30/20 20:19 12/01/20 07:14 REJI BELL DO Dec 01, 2020 08:34
[2020-12-01] MEDS: LR 1,000 ML IV SCH (10:39)
[2020-12-02] MEDS: IBUPROFEN 800 MG TAB PO SCH ×2 (01:01→09:38)
[2020-12-02 02:00] VITALS: BP 117/66
[2020-12-02 06:00] VITALS: BP 114/68
[2020-12-02] MEDS: PERCOCET 5MG/325MG TAB PO PRN ×2 (06:08→12:25)
--- NOTE | 2020-12-02 07:23 | DSES ---
DISCHARGE SUMMARY DATE OF ADMISSION: 11/30/2020 DATE OF DISCHARGE: 12/02/2020 DISCHARGE DIAGNOSIS: 1. Repeat section postop day #2, stable condition. 2. Bilateral tubal ligation. SURGEON: Dr. Papito Cr PLANT PHYSIOLOGIST: None. HISTORY: Stacy is a 30-year-old 5 para 4-0-1-4 now who is admitted on 11/30/2020 with active third trimester bleeding. The decision was made to proceed with a repeat section due to placental abruption. She did also undergo a bilateral tubal ligation. Surgery was uncomplicated. She has an estimated blood loss of 600 ml, delivered a live female, 6 pounds, 2 ounces, 2790 grams, Apgars were 9 and 9. Postoperatively, she has done well. She has been out of bed for self-care, carmen-care and care. She is voiding without difficulty, passing flatus. Denies bowel movement at this time. Pain has been well-managed with p.o. pain medications. She is tolerating clear liquids and a regular diet. She does request discharge home. OBJECTIVE: Temperature is 98.6, pulse is 66, respirations are 16, BP is 114/68. Preoperative CBC on 11/30/2020 with a hemoglobin of 10.7, hematocrit 32.7, platelets 273,000. Postoperative CBC on 12/01/2020 with a hemoglobin of 9.8, hematocrit 29.8 and platelets of 240,000. Breasts are soft and nontender. Abdomen: Fundus is firm at umbilicus. Incision: Optifoam dressing is in place. There is no drainage noted. Perineum is intact with lochia rubra scant. Bilateral lower extremities: No pitting edema. PLAN: Discharge the patient home. She is to follow-up at [facility] for a two incision check and an [address] Cr. I did review discharge instructions that include breast care, incision care, carmen-care, pelvic rest, activity, lifting restrictions, access to care and danger signs to report. Prescriptions for pain medications Ibuprofen and Percocet have been e-prescribed by Dr. Papito Cr to the patient's pharmacy. Patient's questions have been answered and she requests discharge home.
[2020-12-02] MEDS: PRENATAL VITAMINS CHEWABLE TABLET PO SCH (08:02)
[2020-12-02] MEDS: DOCUSATE SODIUM 100MG CAPSULE PO SCH (08:02)
[2020-12-02 10:00] VITALS: BP 115/62
== END 2020-12-02 13:30 | disposition home or self-care (01) | DRG 540 ==
LOC: M LDO 19:10 → M LDI 19:49 → M OBS 23:45
PROVIDERS: ADMIT Obstetrics & Gynecology; ATTEND Obstetrics & Gynecology
PROC: 0UB70ZZ Excision of Bilateral Fallopian Tubes, Open Approach (ICD-10-PCS; 2020-11-30)
PROC: 10D00Z1 Extraction of Products of Conception, Low, Open Approach (ICD-10-PCS; principal; 2020-11-30 20:24)
DX: O34.211 Maternal care for low transverse scar from previous cesarean delivery (principal); Z3A.38 38 weeks gestation of pregnancy; Z37.0 Single live birth; O75.82 Onset (spontaneous) of labor after 37 completed weeks of gestation but before 39 completed weeks gestation, with delivery by (planned) cesarean section; O45.93 Premature separation of placenta, unspecified, third trimester; Z30.2 Encounter for sterilization